=== PATIENT | male | born 1995 | race Two or more races ===

== ENCOUNTER 2020-05-19 12:26 | Inpatient (IN) | payer OTHER ==
[~2020-05-19] VITALS: Ht 170.2 cm; Wt 59.0 kg
--- NOTE | 2020-05-19 13:14 | NUR ---
PTE REFIERE KALYAN DOLOR ABDOMINAL LADO DERECHO DESDE ANOCHE.
== END 2020-05-20 12:45 | disposition home or self-care (01) | DRG 340 ==
LOC: ER 12:26 → SEC-K 19:22 → SURG 19:22 → O/R 21:01 → SURG 22:54
PROVIDERS: ADMIT Surgery; ATTEND Surgery
PROC: 0DTJ4ZZ Resection of Appendix, Percutaneous Endoscopic Approach (ICD-10-PCS; principal; 2020-05-19 20:00)
DX: K35.33 Acute appendicitis with perforation, localized peritonitis, and gangrene, with abscess (principal)